=== PATIENT | male | born 1935 | race Caucasian/White ===

== ENCOUNTER → 2017-08-29 | Outpatient (CLI) | payer MEDICARE, OTHER ==
[~2017-08-29] MED LIST: AMLO5; ASPI81CH; CIPR500; FINA5; LOSA25; TAMS.4ER; Vanquish Caple1 EACH
== END | disposition home or self-care (01) ==
LOC: PLD 07:23
DX: C67.1 Malignant neoplasm of dome of bladder (principal)
CPT/HCPCS: 88108